=== PATIENT | female | born 1995 | race Two or more races ===

== ENCOUNTER 2024-04-15 19:41 | Observation (INO) | payer MEDICAID ==
[2024-04-15 20:43] LABS: Fern Testing Negative
== END 2024-04-15 21:10 | disposition home or self-care (01) ==
LOC: LDRP 19:41
PROVIDERS: ADMIT Obstetrics & Gynecology; ATTEND Obstetrics & Gynecology
DX: O24.419 Gestational diabetes mellitus in pregnancy, unspecified control (principal); O42.92 Full-term premature rupture of membranes, unspecified as to length of time between rupture and onset of labor; O47.1 False labor at or after 37 completed weeks of gestation; Z3A.37 37 weeks gestation of pregnancy
CPT/HCPCS: 59025; 81002; 82948; 82962; 84112; G0378; Q0114